=== PATIENT | female | born 1995 | race Caucasian/White ===

== ENCOUNTER 2019-08-22 14:07 | Outpatient (CLI) | payer OTHER, SELFPAY ==
--- NOTE | ~2019-08-22 | XR_ITS ---
EXAMINATION: XR lumbar spine 2-3V EXAM DATE: 08/22/2019 15:00 INDICATION: No known recent injury provided at this time. Pain of the low back . Mid back pain. TECHNIQUE: Lumber spine frontal, lateral, lateral L5-S1 projections for interpretation. There is no prior study for comparison. FINDINGS: There is mild lumbar facet arthropathy. The vertebral bodies are aligned in the AP dimensi on. Vertebral body and disc heights are well-maintained. There are no acute fractures identified. Par aspinal soft tissue is unremarkable. Sacrum, sacroiliac joints, sacral arcuate lines are intact. IMPRESSION: Mild lumbar facet arthropathy. Reviewed, dictated and finalized at location A. IT RISK OFFICER
--- NOTE | ~2019-08-22 | XR_ITS ---
EXAMINATION: XR thoracic spine 3V EXAM DATE: 08/22/2019 15:00 INDICATION: No known recent injury provided at this time. Pain of the mid back. TECHNIQUE: Frontal and lateral projections of the thoracic spine as well as lateral swimmers projecti on of the upper thoracic spine for interpretation. There is no prior study for comparison. FINDINGS: The vertebral bodies are aligned in the AP dimension. Neck Maintained neck fracture Adalid matilde soft tissue is unremarkable. IMPRESSION: Unremarkable XR thoracic spine 3V exam. Reviewed, dictated and finalized at location A. F QUALITY OFFICER
[2019-08-22 14:19] LABS: Basophils Absolute Auto 0.05 K/mm3 (0.00-0.10); Basophils Percent Auto 0.6 % (0.0-1.0); Eosinophils Absolute Auto 0.19 K/mm3 (0.02-0.50); Eosinophils Percent Auto 2.2 % (1.0-6.0); Hemoglobin 11.9 g/dL (12.0-15.0); Immature Granulocyte Absolute 0.02 K/mm3 (0.00-0.00); Immature Granulocyte Percent A 0.2 % (0.0-0.0); Lymphocytes Absolute Auto 2.92 K/mm3 (1.10-4.50); Lymphocytes Percent Auto 34.1 % (18.0-42.0); Mean Corpuscular HGB Conc 32.2 g/dL (32.0-36.0); Mean Corpuscular Hemoglobin 28.2 pg (27.0-31.0); Mean Corpuscular Volume 87.7 fL (78.0-102.0); Monocytes Absolute Auto 0.53 K/mm3 (0.10-0.90); Monocytes Percent Auto 6.2 % (2.0-11.0); Neutrophils Absolute Auto 4.9 K/mm3 (1.7-7.2); Neutrophils Percent Auto 56.7 % (50.0-70.0); Platelet Count Result 369 K/mm3 (150-420); Red Blood Count 4.22 M/mm3 (4.20-5.40); Red Cell Distribution Width 14.3 % (11.6-14.4); White Blood Count 8.6 K/mm3 (4.8-10.8)
[2019-08-22 15:01] LABS: CRP 0.4 mg/dL (0.0-0.9)
== END 2019-08-22 14:08 | disposition home or self-care (01) ==
LOC: CHSLAB 14:10
PROVIDERS: PCP Family Medicine; Visit Provider Family Medicine
DX: M54.9 Dorsalgia, unspecified (principal)
CPT/HCPCS: 36415; 72072; 72100; 85025; 86140

== ENCOUNTER 2021-06-22 09:05 | Outpatient (CLI) | payer OTHER, SELFPAY ==
--- NOTE | ~2021-06-22 | MMUS_ITS ---
EXAMINATION: MM diagnostic lazarus BI w valdo, US breast LT limited HISTORY: Palpable lump in the left axilla TECHNIQUE: Craniocaudal, mediolateral, and mediolateral oblique 3-D tomosynthesis images of the breas ts were performed and synthetic 2-D images were generated. CAD analysis was submitted and interpreted . High resolution limited left breast ultrasound was performed. COMPARISON: None, baseline BREAST PARENCHYMAL COMPOSITION: There are scattered areas of fibroglandular density. FINDINGS: MAMMOGRAPHIC FINDINGS: There is no evidence of suspicious mass, calcification, or architectural distortion in either breast to suggest malignancy. No mammographic correlate is identified for the patient's reported left axill laura lump. ULTRASOUND: There is a 5 mm x 3 mm oval, circumscribed, parallel, hypoechoic mass in the left axilla in the area of the palpable abnormality. There appears to be posterior acoustic enhancement with no internal vasc ularity. The image appears to be within the skin with a possible tract to the skin surface. IMPRESSION: 1. Possible sebaceous cyst of the left axilla. 2. Follow-up targeted ultrasound in four weeks is recommended. If persistent and no definite tract to the skin can be identified, ultrasound-guided biopsy would be recommended. BI-RADS category 4, suspicious findings. Reviewed, dictated and finalized at location A. OW FABR[employer] WEAVER IMPRESSION: 1. Possible sebaceous cyst of the left axilla. 2. Follow-up targeted ultrasound in four weeks is recommended. If persistent an d no definite tract to the skin can be identified, ultrasound-guided biopsy wou ld be recommended. BI-RADS category 4, suspicious findings.
== END 2021-06-22 09:06 | disposition home or self-care (01) ==
LOC: CHSIMG 09:07
PROVIDERS: PCP Family Medicine; Visit Provider Nurse Practitioner Family
DX: N63.0 Unspecified lump in unspecified breast (principal)
CPT/HCPCS: 76642; 77062; 77066; G0279

== ENCOUNTER 2021-09-17 09:50 | Outpatient (CLI) | payer OTHER, SELFPAY ==
--- NOTE | ~2021-09-17 | US_ITS ---
EXAMINATION: US axilla LT HISTORY: Palpable abnormality of the left axilla TECHNIQUE: Targeted ultrasound left axilla was performed. FINDINGS: There is an approximately 4 mm x 6 mm hypoechoic, not parallel mass of the left axilla with no posterior features or internal vascularity at the site of the previously described sonographic ab normality. This has slightly increased in size since the comparison examination. There is no demonstr ated continuity with the skin surface. IMPRESSION: Indeterminate mass of the left axilla. Ultrasound-guided biopsy is recommended. BI-RADS category 4, suspicious findings. Reviewed, dictated and finalized at location A.
== END 2021-09-17 09:51 | disposition home or self-care (01) ==
LOC: CHSIMG 09:51
PROVIDERS: PCP Family Medicine; Visit Provider Family Medicine
DX: L98.9 Disorder of the skin and subcutaneous tissue, unspecified (principal)
CPT/HCPCS: 76882

== ENCOUNTER 2021-09-21 12:18 | Outpatient (CLI) | payer OTHER, SELFPAY ==
--- NOTE | ~2021-09-21 | US_ITS ---
US breast RT limited DATE: 09/21/2021 12:43 INDICATION: Right breast lump TECHNIQUE: Real-time imaging targeted to area of clinical complaint of right breast lump at 9:00 8 cm from nipple COMPARISON: None FINDINGS: At 9:00 8 cm from the nipple at the area of clinical complaint of breast lump and clinicall y reported localized inflammation, there is within the subcutaneous adipose tissues a parallel circum scribed solid lesion with fatty hilum and relatively uniform thickness peripheral hypoechoic solid ti ssue consistent with lymph node. No skin tract is identified. This lesion measures 3.1 x 6.4 x 7.9 mm . There is vascular color flow signal to the lymph node hilum. There is no suspicious shadowing. IMPRESSION: Subcutaneous lymph node at 9:00 8 cm from nipple BI-RADS Category 3: Probably benign findings Recommendation: Consider follow-up ultrasound as clinically appropriate Reviewed, dictated and finalized at Location A. Reviewed, dictated and finalized at location A.
[2021-09-21 12:51] LABS: Basophils Absolute Auto 0.03 K/mm3 (0.00-0.10); Basophils Percent Auto 0.3 % (0.0-1.0); Eosinophils Absolute Auto 0.19 K/mm3 (0.02-0.50); Eosinophils Percent Auto 2.2 % (1.0-6.0); Hematocrit 42.8 % (35.0-49.0); Hemoglobin 13.8 g/dL (12.0-15.0); Immature Granulocyte Absolute 0.02 K/mm3 (0.00-0.00); Immature Granulocyte Percent A 0.2 % (0.0-0.0); Immature Platelet Fraction Pct 1.2 % (1.0-7.0); Lymphocytes Absolute Auto 2.67 K/mm3 (1.10-4.50); Lymphocytes Percent Auto 30.3 % (18.0-42.0); Mean Corpuscular HGB Conc 32.2 g/dL (32.0-36.0); Mean Corpuscular Hemoglobin 31.5 pg (27.0-31.0); Mean Corpuscular Volume 97.7 fL (78.0-102.0); Mean Platelet Volume 9.8 fl (9.2-11.8); Monocytes Absolute Auto 0.57 K/mm3 (0.10-0.90); Monocytes Percent Auto 6.5 % (2.0-11.0); Neutrophils Absolute Auto 5.3 K/mm3 (1.7-7.2); Neutrophils Percent Auto 60.5 % (50.0-70.0); Platelet Count Result 334 K/mm3 (150-420); Red Blood Count 4.38 M/mm3 (4.20-5.40); Red Cell Distribution Width 12.8 % (11.6-14.4); White Blood Count 8.8 K/mm3 (4.8-10.8)
[2021-09-21 12:57] LABS: Hemoglobin A1C 5.6 % (<5.7)
[2021-09-21 13:01] LABS: Add Urine Microscopic? NO; Appearance Urine Clear (Clear); Bilirubin Urine Negative (Negative); Blood Urine Negative (Negative); Color Urine Light Yellow (Yellow); Glucose Urine UA Negative (Negative); Ketones Urine Negative (Negative); Leukocyte Esterase Ur Negative LEU/UL (Negative); Nitrate Urine Negative (Negative); Protein Urine Negative (Negative); Specific Grav Ur 1.015 (1.010-1.020); Urobilinogen Urine 0.2 mg/dL (0.2-1.0); pH Urine 6.5 (5.0-8.0)
[2021-09-21 13:04] LABS: Alanine Aminotransferase 36 U/L (14-59); Albumin Level 3.7 g/dL (3.4-5.0); Alkaline Phosphatase 94 U/L (46-116); Anion Gap 8 mmol/L (8-16); Aspartate Amino Transferase 16 U/L (15-37); Bilirubin,Total 0.3 mg/dL (0.00-1.00); Blood Urea Nitrogen 13 mg/dL (7-18); Calcium 8.9 mg/dL (8.5-10.1); Carbon Dioxide 28 mmol/L (21-32); Chloride 100 mmol/L (98-108); Cholesterol 223 mg/dL (0-200); Estimated Glomerular Filt Rate > 60; Free T4 Free Thyroxine 0.88 ng/dL (0.76-1.46); Glucose 113 mg/dL (70-99); HDL Direct 36 mg/dL (40-60); LDL Cholesterol Calculated 149 mg/dL (<130); Osmolality Calculated 283 mOsm/kg (285-295); Potassium 4.1 mmol/L (3.5-5.1); Sodium 136 mmol/L (136-145); Thyroid Stimulating Hormone 2.32 uIU/mL (0.36-3.74); Total Protein 7.2 g/dL (6.4-8.2); Triglycerides 191 mg/dL (0-150)
== END 2021-09-21 12:19 | disposition home or self-care (01) ==
LOC: CHSIMG 12:19
PROVIDERS: PCP Family Medicine; Visit Provider Nurse Practitioner Family
DX: R53.83 Other fatigue (principal); R35.89 Other polyuria; R63.1 Polydipsia; E66.9 Obesity, unspecified; N63.10 Unspecified lump in the right breast, unspecified quadrant
CPT/HCPCS: 36415; 76642; 80053; 80061; 81003; 83036; 84439; 84443; 85025; 85055

== ENCOUNTER 2021-11-13 19:32 | Emergency (ER) | payer OTHER, SELFPAY ==
[2021-11-13 19:50] VITALS: BP 140/80; PULSE 92; RESP 21; TEMP 36.4; O2SAT 98
--- NOTE | 2021-11-13 19:56 | ED.WOUNDLAC ---
HPI - Wound/Laceration General Chief Complaint: Wound/Laceration Stated Complaint: Post-surgery/possible infection Source: patient Mode of arrival: ambulatory Limitations: no limitations History of Present Illness HPI narrative: this is a 26-year-old female that recently had a mass resected under her left axilla, approximately 2 weeks ago and currently is having some oozing from the puncture site and with area of erythema proximally 3.5cm in diameter this warm tender to touch, there is currently no fever chills no shortness of breath no nausea vomiting pain is tolerable in the left axilla. Location: other ( Under left axilla) Related Data Allergies Allergy/AdvReac Type Severity Reaction Status Date / Time acetaminophen [From Tylenol] Allergy Difficulty Verified 11/13/21 19:57 Breathing ibuprofen Allergy Difficulty Verified 11/13/21 19:57 Breathing Review of Systems Review of Systems: All systems reviewed & are unremarkable except as noted in HPI and below PMFSH Past Medical History Medical History (Updated 11/13/21 @ 19:59 by Drake Carson MD) Patient denies medical problems Surgical History Surgical History History of Social History Social History Smoking status: Current every day smoker Alcohol intake: former Substance use: never Exam Const: General: no acute distress Orientation/consciousness: patient oriented x3 HENMT: Head: normal to inspection and contusion Eyes: Conjunctivae: conjunctivae normal Pupils: Equal, round and reactive pupils present Neck: Neck: normal visual inspection, no lymphadenopathy and no meningeal signs Chest: Chest palpation & inspection: normal inspection of the chest Resp: Effort & Inspection: normal respiratory effort Auscultation: clear to auscultation bilaterally Cardio: Rate: regular rate Rhythm: regular rhythm GI: GI Palp: Yes Soft to palpation Percussion: Yes normal to percussion Skin: Other: has a small puncture wound that is currently not draining but does have some yellow discharge around the puncture site along with some erythema proximally 3.5cm in diameter under the left axilla x-ray warm and tende Neuro: General: patient oriented x3 and moves all extremities Extrem: General: normal to inspection and no pedal edema Psych: Mental Status: mental status grossly normal Affect: normal affect Course Course Emergency Course: patient received 1g IM ceftriaxone and the wound area was cultured. Critical Care Time Critical Care Time Critical Care Time: No Discharge Plan Discharge Clinical Impression: Abscess Cellulitis Qualifiers: Site of cellulitis: extremity Site of cellulitis of extremity: axilla Laterality: left Qualified Code(s): L03.112 - Cellulitis of left axilla Patient Disposition: Home, Self-Care Condition: Stable Instructions: Antibiotic Form, Cellulitis (ED) Additional Instructions: take medicine as prescribed and follow-up with primary care physician within 1 week further evaluation and treatment. Prescriptions: New clindamycin HCl 300 mg capsule 300 mg PO Q6H Qty: 40 RF: 0 mupirocin 2 % ointment 1 applic topical TID 7 Days Qty: 15 RF: 0 Follow-up/Referrals: Mc Stanford MD [Primary Care Provider] - Time of Disposition: 20:01
[2021-11-13] MEDS: cefTRIAXone 1 GM VIAL IM (20:10)
[2021-11-13] MEDS: LIDOCAINE HCL 1% LOCAL INJ 20 ML VIAL (20:11)
[2021-11-13] MEDS: NEOMYCIN/POLYMYXIN/BACITRACIN OINTMENT PACKET 1 PACKET TOPICAL (20:19)
[2021-11-13 20:40] VITALS: BP 134/80; PULSE 93; RESP 20; TEMP 36.1; O2SAT 98
== END 2021-11-13 20:42 | disposition home or self-care (01) ==
PROVIDERS: Emergency Provider Emergency Medicine; PCP Family Medicine
DX: L03.112 Cellulitis of left axilla (principal)
CPT/HCPCS: 87070; 87205; 96372; 99283; J0696

== ENCOUNTER 2024-12-19 08:15 | Emergency (ER) | payer OTHER, SELFPAY ==
[2024-12-19 08:15] VITALS: BP 141/87; PULSE 83; RESP 16; TEMP 36.3; O2SAT 98
--- NOTE | 2024-12-19 08:21 | ED.FEMALEGU ---
HPI - Female Genitourinary General Chief complaint: Urogenital-Female Stated complaint: Urinary symptoms Time Seen by Provider: 12/19/24 08:18 Source: patient Mode of arrival: ambulatory Limitations: no limitations History of Present Illness HPI Narrative: this is a 29-year-old female with no significant past medical history presents with some dysuria with some urinary frequency with no hematuria no fever chills no shortness of breath no chest pain no diarrhea or constipation. MD elicited complaint: dysuria Onset (ago): day(s) Severity: mild Female Urogenital Radiation: Suprapubic Severity scale (1-10): 3 Related Data Allergies Allergy/AdvReac Type Severity Reaction Status Date / Time acetaminophen (From Tylenol) Allergy Difficulty Verified 11/13/21 19:57 Breathing ibuprofen Allergy Difficulty Verified 11/13/21 19:57 Breathing Review of Systems Review of Systems: All systems reviewed & are unremarkable except as noted in HPI and below PMFSH Past Medical History Medical History Patient denies medical problems Surgical History Surgical History History of Social History Social History Smoking status: Current every day smoker Alcohol intake: former Substance use: never Living arrangements: with family Exam Const: General: healthy appearing, no acute distress and alert Nutritional Appearance: well nourished Orientation/consciousness: patient oriented x3 Limitations: no limitations Chest: Chest palpation & inspection: normal inspection of the chest Resp: Effort & Inspection: normal respiratory effort Auscultation: clear to auscultation bilaterally Cardio: Rate: regular rate Rhythm: regular rhythm GI: GI Palp: Yes Soft to palpation Auscultation: normal bowel sounds Other: Suprapubic tenderness with palpation : General: Yes no CVA tenderness Back/Spine/Pelvis: Back: no CVA tenderness Course Course Emergency Course: urinalysis performed and reviewed with patient started on antibiotics. Vital Signs Vital signs: Vital Signs Temperature 36.3 C L 12/19/24 08:15 Pulse Rate 83 12/19/24 08:15 Respiratory Rate 16 12/19/24 08:15 Blood Pressure 141/87 H 12/19/24 08:15 Pulse Oximetry 98 12/19/24 08:15 Oxygen Delivery Room Air 12/19/24 08:15 Temperature 36.3 C L 12/19/24 08:15 Pulse Rate 83 12/19/24 08:15 Respiratory Rate 16 12/19/24 08:15 Blood Pressure 141/87 H 12/19/24 08:15 Pulse Oximetry 98 12/19/24 08:15 Oxygen Delivery Room Air 12/19/24 08:15 Critical Care Time Critical Care Time Critical Care Time: No Discharge Plan Discharge Clinical Impression: Urinary tract infection Qualifiers: Urinary tract infection type: acute cystitis Hematuria presence: without hematuria Qualified Code(s): N30.00 - Acute cystitis without hematuria Patient Disposition: Home Condition: Stable Instructions: Antibiotic Form, Urinary Tract Infection in Women (ED) Additional Instructions: Advised patient to take medication as prescribed and to follow with primary care physician if symptoms persist or worsen. Patient Language: Norwegian Prescriptions: No Action clindamycin HCl 300 mg capsule 300 mg PO Q6H Qty: 40 0RF mupirocin 2 % ointment 1 applic topical TID 7 Days Qty: 15 0RF Follow-up/Referrals: Yvette,MD Suman [Primary Care Provider] -
--- OUTSIDE RECORDS SUMMARY | 2024-12-19 08:22 | XMS_ITS | Clinical Summary ---
Author Organization [facility] Address [address] [place] [address] Care Team Providers Care Wire Twister Name Role Phone Suman Crawford MD Primary Care Provider [phone] Allergies Active Allergy Reactions Criticality Noted Date Comments Ibuprofen Swollen tongue High 11/15/2021 Medications cyclobenzaprine (FLEXERIL) 10 mg tablet Take 1 tablet (10 mg total) by mouth nightly as needed for muscle spasms 20 tablet 2 Active Additional Information Patient not taking.Reported on 10/01/2024 escitalopram (LEXAPRO) 10 mg tablet Take 1 tablet (10 mg total) by mouth daily 5 Active Active Problems Problem Noted Date Diagnosed Date Morbid obesity with BMI of 50.0-59.9, adult 07/2024 Assessment & Plan (10/01/2024 3:59 PM CDT): Wt Readings from Last 3 Encounters: 10/01/24 (!) 147.5 kg (325 lb 3.2 oz) 08/01/24 (!) 147 kg (324 lb) 04/13/23 (!) 142 kg (313 lb) BMI Readings from Last 3 Encounters: 10/01/24 55.79 kg/m 08/01/24 55.61 kg/m 04/13/23 53.70 kg/m Not at goal of bmi <30 Continue diet and exercise BMI Follow-up includes: nutrition counseling and exercise counseling. Mixed hyperlipidemia 08/29/2022 Assessment & Plan (10/01/2024 4:05 PM CDT): Lab Results Component Value Date CHOL 233 (H) 08/01/2024 CHOL 228 (H) 04/24/2023 CHOL 223 (H) 12/15/2021 Lab Results Component Value Date HDL 43 08/01/2024 HDL 36 (L) 04/24/2023 HDL 34 (L) 12/15/2021 Lab Results Component Value Date LDLCALC 170 (H) 08/01/2024 LDLCALC 154 (H) 04/24/2023 LDLCALC 161 (H) 12/15/2021 Lab Results Component Value Date TRIG 110 08/01/2024 TRIG 191 (H) 04/24/2023 TRIG 140 12/15/2021 No results found for: POCCHDLR No results found for: POCNONHDL No results found for: POCCHLPL Not at g oal Repeat labs for annual Assessment & Plan (08/29/2022 12:31 PM WHEEL ALIGNER): Lab Results Component Value Date CHOL 223 (H) 12/15/2021 Lab Results Component Value Date HDL 34 (L) 12/15/2021 Lab Results Component Value Date LDLCALC 161 (H) 12/15/2021 Lab Results Component Value Date TRIG 140 12/15/2021 No results found for: POCCHDLR No results found for: POCNONHDL No results found for: POCCHLPL Physical exam, annual 08/29/2022 Assessment & Plan (08/29/2022 12:34 PM WHEEL ALIGNER): Discussed lifestyle modifications, diet and exercise. Routine blood work ordered/reviewed today. Yearly vision and dental examinations. Left hand pain 03/10/2022 Assessment & Plan (03/10/2022 9:24 AM CDT): has worsening pain and weakness of the hand. likely related to nerve impingement. will do trial with steroid as she is unable to take nsaids due to previous anaphylactic reaction. Will refer to OT for eval, and have her start using a thumbs pica splint. If no improvement in a few weeks, may need surgical referral Class 3 severe obesity due t o excess calories without serious comorbidity with body mass index (BMI) of 50.0 to 59.9 in adult 11/15/2021 Assessment & Plan (10/01/2024 3:59 PM CDT): Wt Readings from Last 3 Encounters: 10/01/24 (!) 147.5 kg (325 lb 3.2 oz) 08/01/24 (!) 147 kg (324 lb) 04/13/23 (!) 142 kg (313 lb) BMI Readings from Last 3 Encounters: 10/01/24 55.79 kg/m 08/01/24 55.61 kg/m 04/13/23 53.70 kg/m Not at goal of bmi <30 Continue diet and exercise BMI Follow-up includes: nutrition counseling and exercise counseling. Assessment & Plan (04/13/2023 2:28 PM CDT): Wt Readings from Last 3 Encounters: 04/13/23 (!) 142 kg (313 lb) 08/29/22 (!) 141.5 kg (312 lb) 03/10/22 (!) 143.5 kg (316 lb 6.4 oz) BMI Readings from Last 3 Encounters: 04/13/23 53.70 kg/m 08/29/22 53.53 kg/m 03/10/22 54.28 kg/m Not at goal of bmi <30 Continue diet and exercise BMI Follow-up includes: nutrition counseling and exercise counseling. worsening Assessment & Plan (08/29/2022 12:25 PM WHEEL ALIGNER): Wt Readings from Last 3 Encounters: 08/29/22 (!) 141.5 kg (312 lb) 03/10/22 (!) 143.5 kg (316 lb 6.4 oz) 12/15/21 (!) 151.5 kg (334 lb) BMI Readings from Last 3 Encounters: 08/29/22 53.53 kg/m 03/10/22 54.28 kg/m 12/15/21 57.33 kg/m Not at goal of bmi <30 Continue diet and exercise BMI Follow-up includes: nutrition counseling and exercise counseling. Assessment & Plan (03/10/2022 9:24 AM CDT): BMI Follow-up includes: nutrition counseling and exercise counseling. Assessment & Plan (02/07/2022 10:31 AM CDT): HPI: Condition is not at/near goal goal BMI <30 A&P: Healthy, high-protein, lower carbohydrate, lower fat lifestyle and exercise for 150min/week recommended Recommend tracking everything you put in your mouth on an savannah like [employer] Lower carb substitutions: Mihir carries a zero net carb bread If you are looking for whole potatoes, like to use in soup or new potato shape/flavor, radishes are a great replacement If you are looking for mashed potatoes, riced cauliflower in the frozen bag section are a great replacement For pasta, try using zucchini noodles, lay them out on a cookie sheet and pat dry with a tea towel to try to remove as much moisture as possible. Heat your pasta sauce on the stove and put the noodles in for 30-45 seconds. If you leave them in much longer they will become mushy Gustavus and/or coconut flour instead of regular flour For pizza dough, try fathead pizza dough recipe online. To get a crispy crust, bake on one side for 8-12 min, then flip over and bake on the other side for 8-12 min, then put toppings on and bake until the cheese on top of pizza melts chaffles recipe online For ice cream, try the brand Enlightened To replace coffee creamer and make it low carb, use heavy creamer with sugar free Torani sweetener For chips, try Whisps or pork rinds For yogurt, try Two Good bahamian yogurt Use Gregg for recipe ideas. Type in low carb... Hand Measurements: A fist or cupped hand = 1 cup 1 cup = 1 -2 servings of fruit juice 1 oz. of cold cereal 2 oz. of cooked cereal, rice or pasta 8 oz. of milk or yogurt A thumb = 1 oz. of cheese Consuming low-fat cheese helps you meet the required servings from the milk, yogurt and cheese group. 1 oz. of low-fat cheese counts as 8 oz. of milk or yogurt. Handful = 1-2 oz. of snack food Thumb tip = 1 teaspoon Keep high-fat foods, such as peanut butter and mayonnaise, at a minimum. One teaspoon is equal to the end of your thumb, from the knuckle up. Three teaspoons equals 1 tablespoon. Palm = 3 oz. of meat Choose lean poultry, fish, shellfish and beef. One palm size portion equals 3 oz. for an adult and 1 -2 oz. for a child under 5. 1 tennis ball or a fist= 1/2 cup of fruit and vegetables Healthy diets include a variety of colorful fruits and vegetables every day. The secret to serving size is in your hand. Snacking can add up. Remember, 1 handful equals 1 oz. of nuts and small candies. For chips and pretzels, 2 handfuls equals 1 oz. Because hand sizes vary, compare your fist size to an actual measuring cup. Assessment & Plan (11/15/2021 3:46 PM CDT): HPI: Condition is not at/near goal A&P: Discussed/ordered labs, encouraged healthy, low carbohydrate lifestyle and at least 150min/week of exercise Family history of ovarian cancer 11/15/2021 Metabolic syndrome 11/15/2021 Overview (11/15/2021): discussed weight loss - would consider checking insulin and potentially starting medications if a1c is eelevated Chronic fatigue 11/15/2021 Overview (11/15/2021): stop bang = 4, tosses and turns all night, snores does not wake up feeling refersshed. will refer to JACKIE Encounters Date Type Department Care Team Description 10/01/2024 4:00 PM CDT Office Visit [facility] Primary Care at [address] [place] [address] Suman Crawford MD Acute ear pain, left (Primary Dx); Class 3 severe obesity due to excess calories without serious comorbidity with body mass index (BMI) of 50.0 to 59.9 in adult; Morbid obesity with BMI of 50.0-59.9, adult (HCC); Mixed hyperlipidemia from Last 3 Months Immunizations Immunization Administration Dates Next Due DTP / HiB 1995,1995 DTaP 09/20/1999,09/29/1998 Hep B / HiB 09/29/1998,1995 Hep B, Adolescent or Pediatric 1995,1994 IPV 09/20/1999 Influenza, Quadrivalent, Spl it, Preservative Free, Intramuscular 05/09/2019 Influenza, Unspecified 10/01/2024(Deferr ed: Patient Refused),08/01/2024(Deferred: Patient Refused),06/02/2022(Deferred: Patient Refused),04/02/2021(Deferred: Patient Refused),03/14/2021(Deferred: Patient Refused),03/03/2021(Deferred: Patient Refused),04/02/2020(Deferred: Patient Refused),03/03/2020(Deferred: Patient Refused) MMR 09/20/1999,09/29/1998 OPV 09/29/1998,1995,1995 Pneumococcal Polysaccharide PPV23 10/02/2014 Tdap 04/09/2019 Varicella 08/27/1996 Surgical History Surgery Date Site/Laterality Comments SECTION TUBAL LIGATION Medical History Medical History Date Comments Herpes Family History Medical History Relation Name Comments Ovarian cancer Mother Uterine cancer Mother Breast cancer Paternal Grandmother Relation Name Status Comments Father Alive Mother Alive Paternal Grandmother Alive Social History Tobacco Use Types Packs/Day Years Used Date Smoking Tobacco: Every Day Cigarettes 0.5 9 Smokeless Tobacco: Never Tobacco Cessation:Ready to Q uit: Not Asked; Counseling Given: Not Answered Alcohol Use Standard Drinks/Week Comments Not Currently 0 (1 standard drink = 0.6 oz pur e alcohol) AUDIT-C Answer Date Recorded Q1: How often do you have a drink containing alcohol? Never 08/01/2024 Q2: How many drinks containi ng alcohol do you have on a typical day when you are drinking? Patient does not drink Q3: How often do you have si x or more drinks on one occasion? Never 08/01/2024 PHQ-2 Answer Date Recorded PHQ-2 Total Score (If total score is 3 or more points, staff should administer the PHQ-9) 0 10/01/2024 Comments Unknown Sex and Gender Information Value Date Recorded Sex Assigned at Not on file Legal Sex Female 2:20 PM WHEEL ALIGNER Gender Identity Not on file Sexual Orientation Not on file Obstetrics History Para Term AB IAB SAB Ectopic Multiple Livin g Live Births 3 3 3 0 3 1 Date Outcome GA Total Labor Labor/2nd/3rd Weight Sex Type Anes PTL Fabienne A1 A5 Name Clin Term Term 2018 Term 39w 2d 4.216 kg (9 lb 4.7 oz) F CS-LT ranv Spinal N Livin g 9 9 SCROG GINS, GIRLK Lisset Valencia MD Complications:None Delivery Location:[facility] ([facility] L [facility] D PROCEDURE) Last Filed Vital Signs Vital Sign Reading Time Taken Comments Blood Pressure 106/68 10/01/2024 3:57 PM CDT Pulse 81 10/01/2024 3:57 PM CDT Temperature 36.8 C (98.3 F) 08/01/2024 10:30 AM WHEEL ALIGNER Respiratory Rate 16 10/01/2024 3:57 PM CDT Oxygen Saturation 98% 10/01/2024 3:57 PM CDT Inhaled Oxygen Concentration - - Weight 147.5 kg (325 lb 3.2 oz) 10/01/2024 3:57 PM CDT Height 162.6 cm (5' 4.02) 10/01/2024 3:57 PM CD T Body Mass Index 55.79 10/01/2024 3:57 PM CDT Plan of Treatment Health Maintenance Due Date Last Done Comments Cervical Cancer Screening 1995 Hepatitis C Screening 1995 Varicella Vaccines (2 of 2 - 2-dose childhood series) 1999 08/27/1996 Pneumococcal vaccine <65 (2 of 2 - PCV) 10/03/2015 10/02/2014 Regular Well Visit/Exam 18-64 08/29/2023 08/29/2022 Influenza Vaccine (Season Ended) 2025 05/09/2019 Depression Screening 10/01/2025 10/01/2024, 08/01/2024, 03/10/2022, Additional history exists DTaP/Tdap/Td Vaccine (6 - Td or Tdap) 04/09/2029 04/09/2019, 09/20/1999, 09/29/1998, Additional history exists Hepatitis B Screening Completed 09/29/1998 , 1995, 1995, Additional history exists HPV Vaccines Aged Out No longer eligi ble based on patient's age to complete this topic Insurance [facility] [facility] [place] [address] Advance Directives For more information, please contact: [phone] * Full Code (Latest Code Status on File) Date Activated Date Inactivated Comments 05/06/2019 3:17 PM 05/09/2019 3:58 PM * Full Code Date Activated Date Inactivated Comments 05/06/2019 10:25 AM 05/06/2019 3:16 PM Full CPR in case of cardiopulmonary arrest Care Teams Wire Twister Relationship Specialty Start Date End Date Suman Crawford MD PCP - General Family Medicine 11/15/21
--- OUTSIDE RECORDS SUMMARY | 2024-12-19 08:22 | XMS_ITS | Clinical Summary ---
Author Organization [facility] Address [address] [place] [address] Care Team Providers Care Syrup Maker Name Role Phone Unavailable Primary Care Provider Unavailabl e Social History Tobacco Use Types Packs/Day Years Used Date Smoking Tobacco: Never Assessed Comments Unknown Sex and Gender Information Value Date Recorded Sex Assigned at Not on file Legal Sex Female 7:42 AM CDT Gender Identity Not on file Sexual Orientation Not on file Plan of Treatment Health Maintenance Due Date Last Done Comments Cervical Cancer Screening Pa p Smear (Age 21 to 29) Every 3 Years 1995 Cervical Cancer Screening 1995 Annual Physical 1998 Hepatitis C 2013 DTaP, Tdap and Td Vaccines ( 1 - Tdap) 2014 Hepatitis B Vaccines (1 of 3 - 19+ 3-dose series) 2014 COVID-19 Vaccine (2023-2 5 season) 2024 HPV Vaccines Aged Out No longer eligi ble based on patient's age to complete this topic Meningococcal B Vaccine Aged Out No l onger eligible based on patient's age to complete this topic Meningococcal Vaccine Aged Out No merline layne eligible based on patient's age to complete this topic Pneumococcal Vaccine: Pediat rics (0 to 5 Years) and At-Risk Patients (6 to 49 Years) Aged Out No longer eligible b ased on patient's age to complete this topic RSV Immunizations Under 20 Months Aged Out No longer eligible based on patient's age to complete this topic
--- OUTSIDE RECORDS SUMMARY | 2024-12-19 08:22 | XMS_ITS | Continuity of Care Document ---
Author Organization [facility] Address [address] [place] [address] Phone Care Team Providers Care Chemistry Lab Instructor Name Role Phone Lorenzo Rivas MD Unavailable Unavailable Procedures Procedure Date Special supplies Clsd trtmnt fngr/thumb Fx w/o manip Advance Directives Directive Yes / No Effective Date File Name No Information Encounters Encounter Description Practice Location Reason(s) For Visit Diagnoses Date Provider Providers Copied on Encounter [facility], [address] [place] [address], [id number], tel:[phone] [facility] No Information 6 Rob Ventura. [address] [place] [address], [facility], . [phone] Referring Provider: Blade Tam, [address] [facility], [place], [address]. tel:[phone] [facility], [address] [place] [address], [id number], tel:[phone] [facility] No Information 6 Rob Ventura. [address] [place] [address], [facility], . tel:[phone] Referring Provider: Blade Tam, Im[address] [facility], [place], [address]. tel:[phone] Family History Family Member Type Diagnosis Age At Onset Gen Fam Hx Problem (finding) Cervical Cance r ,Kidney Disease ,Arthritis Payers Payer name Insurance type Covered republican ID Wesley ghosh(s) IDPA [id number] Social History Type Description Quantity Date Captured Comments Sex Female Smoking Status No Information Chief Complaint And Reason For Visit No Information Reason For Referral Reason For Referral No Information History Of Present Illness Encounter Date Complaint History Of Prese nt Illness No Information Functional Status Date Functional Assessmen t No Information Instructions Date Instruction Additional Infor mation No Information Assessments Type Assessment Date No Information Patient Care Teams Name Effective Dates (start - stop) Status Members No Information
--- OUTSIDE RECORDS SUMMARY | 2024-12-19 08:22 | XMS_ITS | Continuity of Care Document ---
Author Organization [facility] Address [address] [place] [address] Phone Care Team Providers Care Plaster Machine Tender Name Role Phone Unavailable Unavailable Unavailable Allergies, Adverse Reactions, Alerts Substance Reaction Status Criticality No Known allergies Medications Medication Instructions Dosage Effective Dates (start - stop) Status Comments Cortisporin 3.5 mg-10,000 unit/mL-1 % Ear Soln instill 4 drop by otic route 3 times every day into affected ear(s) - Active Augmentin 875 mg-125 mg tablet take 1 tablet by oral route every 12 hours - Active Procedures Procedure Date OFFICE/OUTPATIENT VISIT, NEW URINE TEST OFFICE/OUTPATIENT VISIT, EST URINE TEST OFFICE/OUTPATIENT VISIT, EST OFFICE/OUTPATIENT VISIT, EST STREP A ASSAY W/OPTIC OFFICE/OUTPATIENT VISIT, EST URINALYSIS NONAUTO W/O SCOPE URINE TEST OFFICE/OUTPATIENT VISIT, EST OFFICE/OUTPATIENT VISIT, EST OFFICE/OUTPATIENT VISIT, EST OFFICE/OUTPATIENT VISIT, EST Ceftriaxone sodium injection OFFICE/OUTPATIENT VISIT, EST Ceftriaxone sodium injection IMMUNE ADMIN ORAL/NASAL OFFICE/OUTPATIENT VISIT, EST Ceftriaxone sodium injection OFFICE/OUTPATIENT VISIT, EST Ceftriaxone sodium injection Advance Directives Directive Yes / No Effective Date File Name No Information Encounters Encounter Description Practice Location Reason(s) For Visit Diagnoses Date Provider Providers Copied on Encounter OFFICE[facility]OUTPAT [facility]ENT [facility]ISIT, [facility], [address], [place], [place], [id number], [place] tel:[phone] [facility] earache (chief complaint) Otitis externaOtitis media 3 No Information [facility], [address], [place], [place], [id number], [place] tel:[phone] [facility] No Information 2 Cole Joaquin. [address] [place], [address], [place]. tel:[phone] Referring Provider: Emani Alarcon, [address] [place], [place], [facility]. tel:[phone] OFFICE/OUTPAT IENT VISIT, [facility], [address], [place], [place], [id number], [place] tel:[phone] [facility] No Information 2 Wyatt Mendiola. [address], [place], [place], [id number], [place]. tel:[phone] Referring Provider: Marlena Schneider, [address], [place], [address] . tel:[phone] OFFICE/OUTPAT IENT VISIT, [facility], [address], [place], [place], [id number], [place] tel:[phone] [facility] No Information 2 Wyatt Mendiola. [address], [place], [place], [id number], [place]. tel:[phone] Referring Provider: Marlena Schneider, [address], [place], [address] . tel:[phone] OFFICE/OUTPAT IENT VISIT, [facility], [address], [place], [place], [id number], [place] tel:[phone] [facility] No Information Rai Arguelles. [address], [place], [place], [id number], [place]. tel:[phone] Referring Provider: Marlena Schneider, [address], [place], [address] . tel:[phone] OFFICE/OUTPAT IENT VISIT, [facility], [address], [place], [place], [id number], [place] tel:[phone] [facility] No Information 1 Big Creekblayne Robertsono. [address], [place], [place], [id number], [place]. tel:[phone] Referring Provider: Marlena Schneider, [address], [place], [address] . tel:[phone] OFFICE/OUTPAT IENT VISIT, [facility], [address], [place], [place], [id number], [place] tel:[phone] [facility] No Information 1 Wyatt Mendiola. [address], [place], [place], [id number], [place]. tel:[phone] Referring Provider: Marlena Schneider, [address], [place], [address] . tel:[phone] OFFICE/OUTPAT IENT VISIT, [facility], [address], [place], [place], [id number], [place] tel:[phone] [facility] No Information 1 Louis Teixeira. [address], [place], [place], [id number], [place]. tel:[phone] Referring Provider: Puneet Seymour, [address], [place], [address] . tel:[phone] OFFICE/OUTPAT IENT VISIT, [facility], [address], [place], [place], [id number], tel:[phone] [facility] No Information Jan-2 4-201 0 Louis Teixeira. [address], [place], [place], [id number], [place]. tel:[phone] Referring Provider: Puneet Seymour, [address], [place], [address] . tel:[phone] OFFICE/OUTPAT IENT VISIT, [facility], [address], [place], [place], [id number], tel:[phone] [facility] No Information Jan-0 6-201 0 Louis Teixeira. [address], [place], [place], [id number], [place]. tel:[phone] Referring Provider: Puneet Seymour, [address], [place], [address] . tel:[phone] OFFICE/OUTPAT IENT VISIT, [facility], [address], [place], [place], [id number], tel:[phone] [facility] No Information Jan-0 5-201 0 Louis Teixeira. [address], [place], [place], [id number], [place]. tel:[phone] Referring Provider: Puneet Seymour, [address], [place], [address] . tel:[phone] OFFICE/OUTPAT IENT VISIT, [facility], [address], [place], [address], [place] tel:[phone] [facility] No Information Jan-0 3-201 0 Louis Teixeira. [address], [place], [place], [address], [place]. tel:[phone] Referring Provider: Puneet Seymour, [address], [place], [address] . tel:[phone] OFFICE/OUTPAT IENT VISIT, [facility], [address], [place], [place], [address], [place] tel:[phone] [facility] No Information 201 0 Louis Teixeira. [address], [place], [place], [id number], [place]. tel:[phone] Referring Provider: Puneet Seymour, [address], [place], [address] . tel:[phone] Family History Family Member Type Diagnosis Age At Onset No Information Payers Payer name Insurance type Covered republican ID Wesley gelion(s) [place] Medicaid MC [id number] Social History Type Description Quantity Date Captured Comments Alcohol Use Details Unknown Caffeine Use Details Unknown Tobacco Use Status No Information Smoking Status No Information Sex Female Vital Signs Date / Time: Height Weight BMI Pulse Rate Blood Pressure Temperature Respiratory Rate Body Surface Area Head Circumference Head Circ. Percentile Wt./Sreekanth. Percentile BMI percentile Pulse Ox Inhaled Ox 1:51 PM 66.00 in 244.00 lbs 39.3 8 kg/m eter (2) 80 /min 118/72 mm[Hg] 98.20 F 20 /min 98 Chief Complaint And Reason For Visit From encounter dated '02/07/2013 13:30'. earache (chief complaint). Description: The pain is located in the right ear. The severity of the problem is moderate. Pain scale: 7/10. The symptoms are daily. Symptoms are not associated with acuteotitis media at <1 years old, attends day care, bottle at bedtime, exposure to second hand smoke, recent antibiotic ear drop use, recent swimming in pool, recent URI/cold and repeated Q-Tip use. Aggravating factors include coughing. Symptoms are not aggravated by lying down, sneezing or wiggling pinna. Symptoms are not relieved by OTC analgesics. Associated symptoms include ear pressure and pain in/around ear(s). Pertinent negatives include dizziness, ear popping, fever, hearing loss, ma laise, nausea, ringing in ears or tinnitus. Reason For Referral Reason For Referral No Information History Of Present Illness Encounter Date Complaint History Of Prese nt Illness earache The pain is loca nilam in the right ear. The severity of the problem is moderate. Pain scale: 7/10. The symptoms are daily. Symptoms are not associated with acute otitis media at <1 years old, attends day care, bottle at bedtime, exposure to second hand smoke, recent antibiotic ear drop use, recent swimming in pool, recent URI/cold and repeated Q-Tip use. Aggravating factors include coughing. Symptoms are not aggravated by lying down, sneezing or wiggling pinna. Symptoms are not relieved by OTC analgesics. Associated symptoms include ear pressure and pain in/around ear(s). Pertinent negatives include dizziness, ear popping, fever, hearing loss, malaise, nausea, ringing in ears or tinnitus. Functional Status Date Functional Assessmen t Pain Score 7/10 Instructions Date Instruction Additional Infor mation No Information Assessments Type Assessment Date No Information Patient Care Teams Name Effective Dates (start - stop) Status Members No Information
--- OUTSIDE RECORDS SUMMARY | 2024-12-19 08:22 | XMS_ITS | Referral Summary ---
Author Organization [facility] Address [address] [place] [address] Care Team Providers Care Archaeology Professor Name Role Phone Suman Crawford MD Primary Care Provider [phone] Encounters Date Type Department Care Team Description 10/01/2024 4:00 PM CDT Office Visit [facility] Primary Care at [address] [place] [address] Suman Crawford MD Acute ear pain, left (Primary Dx); Class 3 severe obesity due to excess calories without serious comorbidity with body mass index (BMI) of 50.0 to 59.9 in adult; Morbid obesity with BMI of 50.0-59.9, adult (HCC); Mixed hyperlipidemia from Last 3 Months Allergies Active Allergy Reactions Criticality Noted Date [...] oz) 08/01/24 (!) 147 kg (324 lb) 10/12/23 (!) 142 kg (313 lb) BMI Readings [...] annual Assessment & Plan (08/29/2022 12:31 PM AUDIO VIDEO TECH): Lab Results Component Value Date CHOL 223 (H) 12/15/2021 Lab Results Component Value Date HDL 34 (L) 12/15/2021 Lab Results Component Value Date LDLCALC 161 (H) 12/15/2021 Lab Results Component Value Date TRIG 140 12/15/2021 No results found for: POCCHDLR No results found for: POCNONHDL No results found for: POCCHLPL Physical exam, annual 08/29/2022 Assessment & Plan (08/29/2022 12:34 PM AUDIO VIDEO TECH): Discussed lifestyle modifications, diet and exercise. Routine [...] worsening Assessment & Plan (08/29/2022 12:25 PM AUDIO VIDEO TECH): Wt Readings from Last 3 Encounters: 08/29/22 [...] in your mouth on an savannah like [employer] Lower carb substitutions: [employer] carries a zero net carb bread If [...] in much longer they will become mushy [place] and/or coconut flour instead of regular flour [...] pork rinds For yogurt, try [employer] Good norwegian yogurt Use Pinterest for recipe ideas. Type in low carb... [...] up feeling refersshed. will refer to JACKIE Immunizations Immunization Administration Dates Next Due DTP [...] Polysaccharide PPV23 10/02/2014 Tdap 04/09/2019 Varicella 08/27/1996 Social History Tobacco Use Types Packs/Day Years [...] on file Legal Sex Female 2:20 PM AUDIO VIDEO TECH Gender Identity Not on file Sexual Orientation Not on file Last Filed Vital Signs Vital Sign Reading Time Taken Comments Blood Pressure 106/68 10/01/2024 3:57 PM CDT Pulse 81 10/01/2024 3:57 PM CDT Temperature 36.8 C (98.3 F) 08/01/2024 10:30 AM AUDIO VIDEO TECH Respiratory Rate 16 10/01/2024 3:57 PM CDT Oxygen Saturation 98% 10/01/2024 3:57 PM CDT Inhaled Oxygen Concentration - - Weight 147.5 kg (325 lb 3.2 oz) 10/01/2024 3:57 PM CDT Height 162.6 cm (5' 4.02) 10/01/2024 3:57 PM CD T Body Mass Index 55.79 10/01/2024 3:57 PM CDT Plan of Treatment Not on file Insurance Advance Directives For more information, please contact: [phone] * Full Code (Latest Code Status on File) Date Activated Date Inactivated Comments 05/06/2019 3:17 PM 05/09/2019 3:58 PM * Full Code Date Activated Date Inactivated Comments 05/06/2019 10:25 AM 05/06/2019 3:16 PM Full CPR in case of cardiopulmonary arrest Care Teams Archaeology Professor Relationship Specialty Start Date End Date Suman Crawford MD PCP - General Family Medicine 11/15/21
--- OUTSIDE RECORDS SUMMARY | 2024-12-19 08:22 | XMS_ITS | Clinical Summary ---
Author Organization [facility] Address [address] [place] [address] Phone Care Team Providers Care Show Card Writer Name Role Phone Mc Stanford MD Primary Care Provider Social History Tobacco Use Types Packs/Day Years Used Date Smoking Tobacco: Never Assessed Comments Unknown Sex and Gender Information Value Date Recorded Sex Assigned at Not on file Legal Sex Female 10:09 AM CDT Gender Identity Not on file Sexual Orientation Not on file Plan of Treatment Health Maintenance Due Date Last Done Comments Hepatitis C Virus (HCV) Screening 1995 TdaP Immunization 1995 Human Papillomavirus (HPV) Immunization (1 - 3-dose series) 2010 SARS-COV-2 Immunization ( season) 2024 Influenza Immunization (Season Ended) 2025 Respiratory Syncytial Virus (RSV) Immunization (Adult) (1 - 1-dose 75+ series) 2070 Hepatitis B Immunization Completed 999, 1995, 1995, Additional history exists DTaP/Tdap/Td Immunization Discontinued 1999, 09/29/1998, 1995, Additional history exists Pneumococcal Immunization Combined Aged Out 10/02/2014 No longer eligible based on patient's age to complete this topic Meningococcal Immunization (ACWY) Aged Out No longer eligible based on patient's age to complete this topic Rotavirus Immunization Aged Out No lo nger eligible based on patient's age to complete this topic Insurance MEDICAID AETNA [facility] Care Teams Show Card Writer Relationship Specialty Start Date End Date Mc Stanford MD [address] [place] [address] PCP - General Pediatrics 12/11/18
[2024-12-19 08:33] LABS: Add Urine Microscopic? YES; Appearance Urine Clear (Clear); Bilirubin Urine Negative (Negative); Blood Urine Trace-intact (Negative); Color Urine Light Yellow (Yellow); Glucose Urine UA Negative (Negative); Ketones Urine Negative (Negative); Leukocyte Esterase Ur 3+ LEU/UL (Negative); Nitrate Urine Negative (Negative); Protein Urine Negative (Negative); Urobilinogen Urine 0.2 mg/dL (0.2-1.0)
[2024-12-19 08:40] LABS: Bacteria Urine 1+ /hpf; RBC Urine 0-2 /hpf (0-2); Squamous Epithelial Cell Urine Moderate /hpf (Few)
--- OUTSIDE RECORDS SUMMARY | 2024-12-19 08:59 | XMS_ITS | Referral Summary ---
Author Organization [facility] Address [address] [place] [address] Care Team Providers Care Iphone Developer Name Role Phone Suman Crawford MD Primary Care Provider [phone] Encounters Date Type Department Care Team Description 10/01/2024 4:00 PM CDT Office Visit [facility] Primary Care at [address] [place] [address] Suman Crawford MD Acute ear [...] annual Assessment & Plan (08/29/2022 12:31 PM GIFT MANAGER): Lab Results Component Value Date CHOL 223 (H) 12/15/2021 Lab Results Component Value Date HDL 34 (L) 12/15/2021 Lab Results Component Value Date LDLCALC 161 (H) 12/15/2021 Lab Results Component Value Date TRIG 140 12/15/2021 No results found for: POCCHDLR No results found for: POCNONHDL No results found for: POCCHLPL Physical exam, annual 08/29/2022 Assessment & Plan (08/29/2022 12:34 PM GIFT MANAGER): Discussed lifestyle modifications, diet and exercise. Routine [...] worsening Assessment & Plan (08/29/2022 12:25 PM GIFT MANAGER): Wt Readings from Last 3 Encounters: 08/29/22 [...] in your mouth on an savannah like [employer] Lower carb substitutions: [employer] carries a zero [...] in much longer they will become mushy [place] and/or coconut flour instead of regular flour [...] pork rinds For yogurt, try [employer] chadian yogurt Use Pinterest for recipe ideas. Type [...] on file Legal Sex Female 2:20 PM GIFT MANAGER Gender Identity Not on file Sexual Orientation Not on file Last Filed Vital Signs Vital Sign Reading Time Taken Comments Blood Pressure 106/68 10/01/2024 3:57 PM CDT Pulse 81 10/01/2024 3:57 PM CDT Temperature 36.8 C (98.3 F) 08/01/2024 10:30 AM GIFT MANAGER Respiratory Rate 16 10/01/2024 3:57 PM CDT Oxygen Saturation 98% 10/01/2024 3:57 PM CDT Inhaled Oxygen Concentration - - Weight 147.5 kg (325 lb 3.2 oz) 10/01/2024 3:57 PM CDT Height 162.6 cm (5' 4.02) 10/01/2024 3:57 PM CD T Body Mass Index 55.79 10/01/2024 3:57 PM CDT Plan of Treatment Not on file Insurance Advance Directives For more information, please contact: [phone] * Full Code (Latest Code Status on File) Date Activated Date Inactivated Comments 05/06/2019 3:17 PM 05/09/2019 3:58 PM * Full Code Date Activated Date Inactivated Comments 05/06/2019 10:25 AM 05/06/2019 3:16 PM Full CPR in case of cardiopulmonary arrest Care Teams Iphone Developer Relationship Specialty Start Date End Date Suman Crawford MD PCP - General Family Medicine 11/15/21
--- OUTSIDE RECORDS SUMMARY | 2024-12-19 08:59 | XMS_ITS | Clinical Summary ---
Author Organization [facility] Address [address] [place] [address] Phone Care Team Providers Care Glove Factory Sewer Name Role Phone Mc Stanford MD Primary [...] to complete this topic Insurance MEDICAID AETNA [facility] Care Teams Glove Factory Sewer Relationship Specialty Start Date End Date Mc Stanford MD [address] [place] [address] PCP - General Pediatrics 12/11/18
--- OUTSIDE RECORDS SUMMARY | 2024-12-19 09:00 | XMS_ITS | Continuity of Care Document ---
Author Organization [facility] Address [address] [place] [address] Phone Care Team Providers Care Supervisor Pig Machine Name Role Phone Lorenzo Rivas MD Unavailable Unavailable Procedures Procedure Date Special supplies Clsd trtmnt fngr/thumb Fx w/o manip Advance Directives Directive Yes / No Effective Date File Name No Information Encounters Encounter Description Practice Location Reason(s) For Visit Diagnoses Date Provider Providers Copied on Encounter [facility], [address] [place] [address], [id number], tel:[phone] [facility] No Information 6 Rob Ventura. [address] [place] [address], [facility], . [phone] Referring Provider: Blade Tam, [address] [facility], [place], [address]. tel:[phone] [facility], [address] [place] [address], [id number], tel:[phone] [facility] No Information 6 Rob Ventura. [address] [place] [address], [facility], . tel:[phone] Referring Provider: Blade Tam, [address] [facility], [place], [address]. tel:[phone] Family History Family Member Type Diagnosis Age At Onset Gen Fam Hx Problem (finding) Cervical Cance r ,Kidney Disease ,Arthritis Payers Payer name Insurance type Covered libertarian ID Wesley ghosh(s) IDPA [id number] Social History Type Description Quantity Date Captured [...]
--- OUTSIDE RECORDS SUMMARY | 2024-12-19 09:00 | XMS_ITS | Continuity of Care Document ---
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 [address] [place], [address], [place]. tel:[phone] Referring Provider: Emani Alarcon, [address] [place], [place], [facility]. tel:[phone] OFFICE/OUTPAT IENT VISIT, [facility], [address], [place], [place], [address], [place] tel:[phone] [facility] No Information 2 Wyatt Mendiola. [address], [place], [place], [address], [place]. tel:[phone] Referring Provider: Marlena Schneider, [address], [place], [address] . tel:[phone] OFFICE/OUTPAT IENT VISIT, [facility], [address], [place], [place], [address], [place] tel:[phone] [facility] No Information 2 Wyatt Mendiola. [address], [place], [place], [address], [place]. tel:[phone] Referring Provider: Marlena Schneider, [address], [place], [address] . tel:[phone] OFFICE/OUTPAT IENT VISIT, Pending sale to [facility], [address], [place], [place], [address], [place] tel:[phone] [facility] No Information Rai Arguelles. [address], [place], [place], [address], [place]. tel:[phone] Referring Provider: Marlena Schneider, [address], [place], [address] . tel:[phone] OFFICE/OUTPAT IENT VISIT, Pending sale to [facility], [address], [place], [place], [address], [place] tel:[phone] [facility] No Information 1 Waimeablayne Robertsono. [address], [place], [place], [address], [place]. tel:[phone] Referring Provider: Marlena Schneider, [address], [place], [address] . tel:[phone] OFFICE/OUTPAT IENT VISIT, Pending sale to [facility], [address], [place], [place], [address], [place] tel:[phone] [facility] No Information 1 Wyatt Mendiola. [address], [place], [place], [address], [place]. tel:[phone] Referring Provider: Marlena Schneider, [address], [place], [address] . tel:[phone] OFFICE/OUTPAT IENT VISIT, Pending sale to [facility], [address], [place], [place], [address], [place] tel:[phone] [facility] No Information 1 Louis Teixeira. [address], [place], [place], [address], [place]. tel:[phone] Referring Provider: Puneet Seymour, [address], [place], [address] . tel:[phone] OFFICE/OUTPAT IENT VISIT, Pending sale to [facility], [address], [place], [place], [address], tel:[phone] [facility] No Information Jan-2 4-201 0 Louis Teixeira. [address], [place], [place], [address], [place]. tel:[phone] Referring Provider: Puneet Seymour, [address], [place], [address] . tel:[phone] OFFICE/OUTPAT IENT VISIT, Count includes the [facility], [address], [place], [place], [address], tel:[phone] [facility] No Information Jan-0 6-201 0 Louis Teixeira. [address], [place], [place], [address], [place]. tel:[phone] Referring Provider: Puneet Seymour, [address], [place], [address] . tel:[phone] OFFICE/OUTPAT IENT VISIT, Count includes the [facility], [address], [place], [place], [address], tel:[phone] [facility] No Information Jan-0 5-201 0 Louis Teixeira. [address], [place], [place], [address], [place]. tel:[phone] Referring Provider: Puneet Seymour, [address], [place], [address] . tel:[phone] OFFICE/OUTPAT IENT VISIT, Count includes the [facility], [address], [place], [place], [address], [place] tel:[phone] [facility] No Information Jan-0 3-201 0 Louis Teixeira. [address], [place], [place], [address], [place]. tel:[phone] Referring Provider: Puneet Seymour, [address], [place], [address] . tel:[phone] OFFICE/OUTPAT IENT VISIT, [facility], [address], [place], [place], [address], [place] tel:[phone] [facility] No Information 201 0 Louis Teixeira. [address], [place], [place], [address], [place]. tel:[phone] Referring Provider: Puneet Seymour, [address], [place], [address] . tel:[phone] Family History Family Member Type Diagnosis Age At Onset No Information Payers Payer name Insurance type Covered libertarian ID Wesley gelion(s) [place] Medicaid MC [id number] Social History Type Description Quantity Date Captured [...]
--- OUTSIDE RECORDS SUMMARY | 2024-12-19 09:00 | XMS_ITS | Clinical Summary ---
Author Organization [facility] Address [address] [place] [address] Care Team Providers Care Clinique Counter Manager Name Role Phone Suman Crawford MD Primary Care Provider [phone] Allergies Active Allergy Reactions Criticality Noted Date [...] annual Assessment & Plan (08/29/2022 12:31 PM CNC SET UP OPERATOR): Lab Results Component Value Date CHOL 223 (H) 12/15/2021 Lab Results Component Value Date HDL 34 (L) 12/15/2021 Lab Results Component Value Date LDLCALC 161 (H) 12/15/2021 Lab Results Component Value Date TRIG 140 12/15/2021 No results found for: POCCHDLR No results found for: POCNONHDL No results found for: POCCHLPL Physical exam, annual 08/29/2022 Assessment & Plan (08/29/2022 12:34 PM CNC SET UP OPERATOR): Discussed lifestyle modifications, diet and exercise. Routine [...] worsening Assessment & Plan (08/29/2022 12:25 PM CNC SET UP OPERATOR): Wt Readings from Last 3 Encounters: 08/29/22 [...] in your mouth on an savannah like [employer] Lower carb substitutions: Mihir carries a zero [...] in much longer they will become mushy [place] and/or coconut flour instead of regular flour [...] pork rinds For yogurt, try [employer] [place]ian yogurt Use [employer] for recipe ideas. Type [...] Description 10/01/2024 4:00 PM CDT Office Visit [facility] at [address] [place] [address] Suman Crawford MD Acute ear [...] on file Legal Sex Female 2:20 PM CNC SET UP OPERATOR Gender Identity Not on file Sexual Orientation [...] Lisset Valencia MD Complications:None Delivery Location:[facility] ([facility] AND D PROCEDURE) Last Filed Vital Signs Vital Sign Reading Time Taken Comments Blood Pressure 106/68 10/01/2024 3:57 PM CDT Pulse 81 10/01/2024 3:57 PM CDT Temperature 36.8 C (98.3 F) 08/01/2024 10:30 AM CNC SET UP OPERATOR Respiratory Rate 16 10/01/2024 3:57 PM CDT [...] to complete this topic Insurance [employer] [facility] [place] [address] [address] Advance Directives For more information, please contact: [phone] * Full Code (Latest Code Status on File) Date Activated Date Inactivated Comments 05/06/2019 3:17 PM 05/09/2019 3:58 PM * Full Code Date Activated Date Inactivated Comments 05/06/2019 10:25 AM 05/06/2019 3:16 PM Full CPR in case of cardiopulmonary arrest Care Teams Clinique Counter Manager Relationship Specialty Start Date End Date Suman Crawford MD PCP - General Family Medicine 11/15/21
== END 2024-12-19 08:52 | disposition home or self-care (01) ==
LOC: CHSED 08:49
PROVIDERS: Emergency Provider Emergency Medicine; PCP Family Medicine
DX: N30.00 Acute cystitis without hematuria (principal); F17.200 Nicotine dependence, unspecified, uncomplicated
CPT/HCPCS: 81001; 99283